=== PATIENT | female | born 1990 | race Caucasian/White ===

== ENCOUNTER 2019-05-18 14:57 | Emergency (ER) | payer MEDICAID ==
[2019-05-18] MEDS ORDERED: Sodium Chloride 0.9% 10 ML Syringe FLUSH PRN (15:13)
[2019-05-18] MEDS ORDERED: Ondansetron 4 MG/2 ML SDV IVPUSH ONE ×2 (15:14→18:01)
[2019-05-18] MEDS ORDERED: LORazepam 2 MG/ML SDV IVPUSH ONE (15:14)
[2019-05-18] MEDS ORDERED: Sodium Chloride 0.9% 1,000 ML IV SCH (15:15)
--- NOTE | 2019-05-18 18:00 | EDM.PDOC ---
ED HPI GENERAL MEDICAL PROBLEM - General Chief Complaint: Gastrointestinal Problem Stated Complaint: PANIC ATTACK Time Seen by Provider: 05/18/19 15:35 Source of Information: Reports: Patient History Limitations: Reports: No Limitations - History of Present Illness INITIAL COMMENTS - FREE TEXT/NARRATIVE: Patient presented to the ED because of fever/chills,N/V/D. Denies having any abdominal pain, or urinary s/s. - Related Data Allergies Allergy/AdvReac Type Severity Reaction Status Date / Time season Allergy Other Uncoded 05/18/19 15:24 Home Meds: Home Meds Cetirizine [ZyrTEC] 10 mg PO DAILY 05/18/19 [History] FLUoxetine [PROzac] 10 mg PO DAILY 05/18/19 [History] ED ROS GENERAL - Review of Systems Review Of Systems: See Below Constitutional: Reports: No Symptoms HEENT: Reports: No Symptoms Respiratory: Reports: No Symptoms Cardiovascular: Reports: No Symptoms Endocrine: Reports: No Symptoms GI/Abdominal: Reports: Diarrhea, Nausea, Vomiting Musculoskeletal: Reports: No Symptoms Skin: Reports: No Symptoms Neurological: Reports: No Symptoms Psychiatric: Reports: Agitation, Anxiety ED EXAM, GI/ABD - Physical Exam Exam: See Below Exam Limited By: No Limitations General Appearance: Alert, No Apparent Distress Nose: Normal Inspection, Normal Mucosa, No Blood Throat/Mouth: Normal Inspection, Normal Lips, Normal Teeth, Normal Gums Head: Atraumatic, Normocephalic Neck: Normal Inspection, Supple Respiratory/Chest: No Respiratory Distress, Lungs Clear, Normal Breath Sounds, No Accessory Muscle Use, Chest Non-Tender Cardiovascular: Normal Peripheral Pulses, Regular Rate, Rhythm, No Edema, No Gallop, No JVD, No Murmur, No Rub GI/Abdominal Exam: Soft, Non-Tender, No Mass, Abnormal Bowel Sounds Back Exam: Normal Inspection, Full Range of Motion. No: CVA Tenderness (R) Extremities: Normal Inspection, Normal Range of Motion, Non-Tender Neurological: Alert, Oriented, CN II-XII Intact, Normal Cognition Psychiatric: Anxious Skin Exam: Warm, Dry, Intact Course - Vital Signs Text/Narrative:: labs/cxr/ was discussed with patient and verbalized full understanding ns 1 l bolus zofran 4 mg iv x 2 doses - Orders/Labs/Meds Orders: Active Orders 24 hr Category Date Time Status Chest 1V Frontal [CR] Stat Exams 05/18/19 16:15 Taken Sodium Chloride 0.9% [Normal Saline] 1,000 ml Med 05/18/19 15:15 Active IV ASDIRECTED Sodium Chloride 0.9% [Saline Flush] Med 05/18/19 15:13 Active 10 ml FLUSH ASDIRECTED PRN Saline Lock Insert [OM.PC] Routine Oth 05/18/19 15:13 Ordered Medication Orders Sodium Chloride (Normal Saline) 1,000 mls @ 999 mls/hr IV ASDIRECTED NATALIA Sodium Chloride (Saline Flush) 10 ml FLUSH ASDIRECTED PRN PRN Reason: Keep Vein Open Labs: Laboratory Tests 05/18/19 05/18/19 05/18/19 Range/Units 15:35 15:35 17:30 WBC 18.9 H (4.5-12.0) X10-3/uL RBC 5.33 H (3.23-5.20) x10(6)uL Hgb 16.6 H (11.5-15.5) g/dL Hct 48.8 (30.0-51.3) % MCV 91.6 (80-96) fL MCH 31.1 (27.7-33.6) pg MCHC 33.9 (32.2-35.4) g/dL RDW 13.0 (11.5-15.5) % Plt Count 270 (125-369) X10(3)uL MPV 9.7 (7.4-10.4) fL Add Manual Diff Yes Neutrophils % (Manual) 93 H (46-82) % Lymphocytes % (Manual) 2 L (13-37) % Monocytes % (Manual) 5 (4-12) % Sodium 143 (135-145) mmol/L Potassium 3.8 (3.5-5.3) mmol/L Chloride 105 (100-110) mmol/L Carbon Dioxide 22 (21-32) mmol/L BUN 15 (7-18) mg/dL Creatinine 1.0 (0.55-1.02) mg/dL Est Cr Clr Drug Dosing TNP Estimated GFR (MDRD) > 60 (>60) BUN/Creatinine Ratio 15.0 (9-20) Glucose 136 H (80-116) mg/dL Calcium 9.9 (8.6-10.2) mg/dL Urine Color Yellow (YELLOW) Urine Appearance Slightly cloudy (CLEAR) Urine pH 5.0 (5.0-6.5) Ur Specific [place] 1.020 (1.010-1.025) Urine Protein Negative (NEGATIVE) mg/dL Urine Glucose (UA) Normal (NORMAL) mg/dL Urine Ketones Negative (NEGATIVE) mg/dL Urine Occult Blood Negative (NEGATIVE) Urine Nitrite Negative (NEGATIVE) Urine Bilirubin Negative (NEGATIVE) Urine Urobilinogen Normal (NEGATIVE) mg/dL Ur Leukocyte Esterase Negative (NEGATIVE) Urine RBC 0-5 (0-5) Urine WBC 0-5 (0-5) Ur Squamous Epith Cells Many H (NS,R,O) Urine Bacteria Moderate H (NS) Urine Mucus Moderate H (NS) Meds: Medications Generic Name Dose Route Start Last Admin Trade Name Freq PRN Reason Stop Dose Admin Sodium Chloride 1,000 mls @ 999 mls/hr 05/18/19 15:15 Normal Saline IV ASDIRECTED NATALIA Sodium Chloride 10 ml 05/18/19 15:13 Saline Flush FLUSH ASDIRECTED PRN Keep Vein Open Discontinued Medications Generic Name Dose Route Start Last Admin Trade Name Freq PRN Reason Stop Dose Admin Lorazepam 1 mg 05/18/19 15:14 Ativan IVPUSH 05/18/19 15:15 ONETIME ONE Ondansetron HCl 4 mg 05/18/19 15:14 Zofran IVPUSH 05/18/19 15:15 ONETIME ONE Ondansetron HCl 4 mg 05/18/19 18:01 Zofran IVPUSH 05/18/19 18:02 ONETIME ONE Departure - Departure Time of Disposition: 17:55 Disposition: Home, Self-Care 01 Condition: Good Clinical Impression: Viral syndrome, Panic attack as reaction to stress - Discharge Information Instructions: Panic Attack, [id number], Viral Illness, Adult Referrals: PCP,None [Primary Care Provider] - Forms: ED Department Discharge Additional Instructions: please read discharge instructions on vial illness and panic attack increase oral fluids frequent hand washing follow up with your anxiety if it's getting worse you can take imodium(over the counter) 2 tablets every 6 hours as needed for you diarrhea Sepsis Event Note - Focused Exam Date Exam was Performed: 05/18/19 Time Exam was Performed: 18:04 - My Orders Last 24 Hours: My Active Orders 05/18/19 15:13 Sodium Chloride 0.9% [Saline Flush] 10 ml FLUSH ASDIRECTED PRN Saline Lock Insert [OM.PC] Routine 05/18/19 15:15 Sodium Chloride 0.9% [Normal Saline] 1,000 ml IV ASDIRECTED 05/18/19 16:15 Chest 1V Frontal [CR] Stat - Assessment/Plan Last 24 Hours: My Active Orders 05/18/19 15:13 Sodium Chloride 0.9% [Saline Flush] 10 ml FLUSH ASDIRECTED PRN Saline Lock Insert [OM.PC] Routine 05/18/19 15:15 Sodium Chloride 0.9% [Normal Saline] 1,000 ml IV ASDIRECTED 05/18/19 16:15 Chest 1V Frontal [CR] Stat
--- NOTE | 2019-05-19 10:28 | CR ---
INDICATION: Cough and fever. COUGH, 1 VIEW: An AP upright portable view of the chest was obtained 05/18/19 - no comparisons. The heart, mediastinum and bony thorax are unremarkable, except to note a minimal dextroconcave scoliosis at the upper thoracic spine. No consolidating pneumonia or effusion was identified. However, there is bronchial wall cuffing at the lung bases, which may represent active peribronchial disease and should be correlated clinically. MTDD
== END 2019-05-18 18:50 | disposition home or self-care (01) ==
LOC: FB.ED 15:02
DX: F43.0 Acute stress reaction (principal); B34.9 Viral infection, unspecified; Z79.899 Other long term (current) drug therapy; Z91.048 Other nonmedicinal substance allergy status
CPT/HCPCS: 36415; 71045; 80048; 81001; 85025; 87804; 96361; 96374; 96375; 96376; 99284; J2060; J2405; J7030

== ENCOUNTER 2020-06-02 07:32 | Emergency (ER) | payer MEDICAID ==
[2020-06-02] MEDS ORDERED: Ondansetron 4 MG/2 ML SDV IVPUSH ONE (08:07)
[2020-06-02] MEDS ORDERED: Ketorolac 30 MG/ML SDV IVPUSH ONE (08:07)
[2020-06-02] MEDS ORDERED: Alum Hydroxide/Mag Hydroxide 30 ML, Lidocaine 2% 15 ML PO ONE ×2 (08:07)
[2020-06-02] MEDS ORDERED: Sodium Chloride 0.9% 1,000 ML IV ONE (08:07)
--- NOTE | 2020-06-02 08:16 | EDM.PDOC ---
ED HPI GENERAL MEDICAL PROBLEM - General Chief Complaint: General Stated Complaint: NOT FEELING WELL Time Seen by Provider: 06/02/20 07:50 Source of Information: Reports: Patient History Limitations: Reports: No Limitations - History of Present Illness INITIAL COMMENTS - FREE TEXT/NARRATIVE: c/o panic attack pt states she had nausea yesterday during the day, ate lunch, no supper inc'd N and anxiety in the evening, says she did not sleep all night, waited for her 7 yo son to go to school and then came to ED has h/o panic attacks x 1y says she is dehydrated and wants IVFs and nausea meds, did not want to answer questions, wanted her sxs tx'ed, did understand that a hx was needed to give her the correct meds had a similar occurrence 2w ago, tx with IVF/Zofran/Ativan, no f/u with PCP last PCP visit 2m ago, sees Gail from [place], lives in [place] denies street drugs, no cigs, no THC, alc 2x/wk stressors are: no work, single parent, handicapped child has had stomac ache in [id number] area, 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 no cough/sob, no f/c/d thirsty - Related Data Allergies Allergy/AdvReac Type Severity Reaction Status Date / Time season Allergy Other Uncoded 05/18/19 15:24 Home Meds: Home Meds Cetirizine [ZyrTEC] 10 mg PO DAILY 05/18/19 [History] FLUoxetine [PROzac] 20 mg PO DAILY 05/18/19 [History] Albuterol Sulfate [Proair Hfa] 1 puff INH ASDIRECTED 06/02/20 [History] Past Medical History Respiratory History: Reports: Asthma Neurological History: Reports: Seizure Psychiatric History: Reports: Anxiety, Depression Social & Family History - Tobacco Use Tobacco Use Status *Q: Never Tobacco User Second Hand Smoke Exposure: No - Caffeine Use Caffeine Use: Reports: None - Alcohol Use Days Per Week of Alcohol Use: 2 Number of Drinks Per Day: 5 Total Drinks Per Week: 10 - Recreational Drug Use Recreational Drug Use: No ED ROS GENERAL - Review of Systems Review Of Systems: See Below Constitutional: Reports: No Symptoms. Denies: Fever, Chills HEENT: Reports: No Symptoms Respiratory: Reports: No Symptoms. Denies: Shortness of Breath, Cough Cardiovascular: Reports: No Symptoms. Denies: Chest Pain Endocrine: Reports: No Symptoms GI/Abdominal: Reports: Abdominal Pain, Nausea, Vomiting, Other (last BM unknown, says she has not been eating and drinking, however denies wt loss) : Reports: No Symptoms Musculoskeletal: Reports: No Symptoms Skin: Reports: No Symptoms Neurological: Reports: No Symptoms Psychiatric: Reports: Anxiety. Denies: Homicidal Ideation, Suicidal Ideation Hematologic/Lymphatic: Reports: No Symptoms Immunologic: Reports: No Symptoms ED EXAM, GENERAL - Physical Exam Exam: See Below Exam Limited By: No Limitations General Appearance: Alert, WD/WN, Other (states she is anxious, no tremors, nl speech, distracted by somatic sxs, did focus when asked to do so) Eye Exam: Bilateral Eye: EOMI, PERRL Ears: Hearing Grossly Normal Nose: Normal Inspection, Normal Mucosa, No Blood Neck: Normal Inspection, Supple, Non-Tender, Full Range of Motion Respiratory/Chest: No Respiratory Distress, Lungs Clear, Normal Breath Sounds, No Accessory Muscle Use, Chest Non-Tender Cardiovascular: Regular Rate, Rhythm, No Edema, No Gallop, No Murmur, No Rub GI/Abdominal: Normal Bowel Sounds, Soft, No Organomegaly, No Distention, Other (slight tender in epigastrium only, nl BS x 4) Back Exam: Normal Inspection, Full Range of Motion. No: CVA Tenderness (L) Extremities: Normal Inspection, Normal Range of Motion, Non-Tender, No Pedal Edema Neurological: Alert, Oriented, CN II-XII Intact, Normal Cognition, No Motor/Sensory Deficits Psychiatric: Other (some anxiety, states she is under a lot of stress, no SI/HI) Skin Exam: Warm, Dry, Intact, Normal Color, No Rash Lymphatic: No Adenopathy Course - Vital Signs Last Recorded V/S: Last Vital Signs Temp 36.8 C 06/02/20 07:37 Pulse 82 06/02/20 07:37 Resp 18 06/02/20 07:37 BP 102/69 06/02/20 07:37 Pulse Ox 97 06/02/20 07:37 - Orders/Labs/Meds Labs: Laboratory Tests 06/02/20 06/02/20 06/02/20 Range/Units 08:00 08:00 08:25 WBC 13.1 H (3.0-10.3) x10-3/uL RBC 4.45 (3.60-5.20) x10(6)uL Hgb 13.7 (11.4-15.5) g/dL Hct 41.3 (34.2-48.2) % MCV 92.8 (76.7-100.5) fL MCH 30.7 (23.9-33.9) pg MCHC 33.1 (31.9-34.8) g/dL RDW 12.6 (12.3-16.5) % Plt Count 236 (151-488) x10(3)uL MPV 9.4 (7.1-12.4) fL Add Manual Diff Yes Neutrophils % (Manual) 93 H (46-82) % Lymphocytes % (Manual) 5 L (13-37) % Monocytes % (Manual) 2 L (4-12) % Sodium (135-145) mmol/L Potassium (3.5-5.3) mmol/L Chloride (100-110) mmol/L Carbon Dioxide (21-32) mmol/L BUN (7-18) mg/dL Creatinine (0.55-1.02) mg/dL Est Cr Clr Drug Dosing mL/min Estimated GFR (MDRD) (>60) BUN/Creatinine Ratio (9-20) Glucose (80-116) mg/dL Calcium (8.6-10.2) mg/dL Total Bilirubin (0.1-1.3) mg/dL AST (5-25) IU/L ALT (12-36) U/L Alkaline Phosphatase (56-112) IU/L Creatine Kinase (60-160) IU/L C-Reactive Protein (0.5-0.9) mg/dL Total Protein (6.0-8.0) g/dL Albumin (3.5-5.2) g/dL Globulin g/dL Albumin/Globulin Ratio Lipase (73-393) U/L Urine Color Yellow (YELLOW) Urine Appearance Slightly cloudy (CLEAR) Urine pH 7.0 H (5.0-6.5) Ur Specific [place] 1.010 (1.010-1.025) Urine Protein Negative (NEGATIVE) mg/dL Urine Glucose (UA) Normal (NORMAL) mg/dL Urine Ketones Negative (NEGATIVE) mg/dL Urine Occult Blood Negative (NEGATIVE) Urine Nitrite Negative (NEGATIVE) Urine Bilirubin Negative (NEGATIVE) Urine Urobilinogen Normal (NEGATIVE) mg/dL Ur Leukocyte Esterase Negative (NEGATIVE) Urine RBC Not seen (0-5) Urine WBC 0-5 (0-5) Ur Squamous Epith Cells Moderate H (NS,R,O) Urine Bacteria Few H (NS) Urine Mucus Few H (NS) Urine Opiates Screen Negative (NEGATIVE) Ur Oxycodone Screen Negative (NEGATIVE) Ur Propoxyphene Screen Negative (NEGATIVE) Ur Barbituates Screen Negative (NEGATIVE) Ur Tricyclics Screen Negative (NEGATIVE) Ur Phencyclidine Scrn Negative (NEGATIVE) Ur Amphetamine Screen Negative (NEGATIVE) Urine MDMA Screen Negative (NEGATIVE) U Benzodiazepines Scrn Negative (NEGATIVE) U Cocaine Metab Screen Negative (NEGATIVE) U Marijuana (THC) Screen Negative (NEGATIVE) 06/02/20 06/02/20 06/02/20 Range/Units 08:25 08:25 08:25 WBC (3.0-10.3) x10-3/uL RBC (3.60-5.20) x10(6)uL Hgb (11.4-15.5) g/dL Hct (34.2-48.2) % MCV (76.7-100.5) fL MCH (23.9-33.9) pg MCHC (31.9-34.8) g/dL RDW (12.3-16.5) % Plt Count (151-488) x10(3)uL MPV (7.1-12.4) fL Add Manual Diff Neutrophils % (Manual) (46-82) % Lymphocytes % (Manual) (13-37) % Monocytes % (Manual) (4-12) % Sodium 136 (135-145) mmol/L Potassium 4.0 (3.5-5.3) mmol/L Chloride 99 L D (100-110) mmol/L Carbon Dioxide 25 (21-32) mmol/L BUN 13 (7-18) mg/dL Creatinine 1.0 (0.55-1.02) mg/dL Est Cr Clr Drug Dosing 72.97 mL/min Estimated GFR (MDRD) > 60 (>60) BUN/Creatinine Ratio 13.0 (9-20) Glucose 108 (80-116) mg/dL Calcium 9.1 (8.6-10.2) mg/dL Total Bilirubin 0.5 (0.1-1.3) mg/dL AST 17 (5-25) IU/L ALT 25 (12-36) U/L Alkaline Phosphatase 92 (56-112) IU/L Creatine Kinase 97 (60-160) IU/L C-Reactive Protein < 0.2 L (0.5-0.9) mg/dL Total Protein 7.7 (6.0-8.0) g/dL Albumin 4.1 (3.5-5.2) g/dL Globulin 3.6 g/dL Albumin/Globulin Ratio 1.1 Lipase 49 L (73-393) U/L Urine Color (YELLOW) Urine Appearance (CLEAR) Urine pH (5.0-6.5) Ur Specific [place] (1.010-1.025) Urine Protein (NEGATIVE) mg/dL Urine Glucose (UA) (NORMAL) mg/dL Urine Ketones (NEGATIVE) mg/dL Urine Occult Blood (NEGATIVE) Urine Nitrite (NEGATIVE) Urine Bilirubin (NEGATIVE) Urine Urobilinogen (NEGATIVE) mg/dL Ur Leukocyte Esterase (NEGATIVE) Urine RBC (0-5) Urine WBC (0-5) Ur Squamous Epith Cells (NS,R,O) Urine Bacteria (NS) Urine Mucus (NS) Urine Opiates Screen (NEGATIVE) Ur Oxycodone Screen (NEGATIVE) Ur Propoxyphene Screen (NEGATIVE) Ur Barbituates Screen (NEGATIVE) Ur Tricyclics Screen (NEGATIVE) Ur Phencyclidine Scrn (NEGATIVE) Ur Amphetamine Screen (NEGATIVE) Urine MDMA Screen (NEGATIVE) U Benzodiazepines Scrn (NEGATIVE) U Cocaine Metab Screen (NEGATIVE) U Marijuana (THC) Screen (NEGATIVE) Meds: Medications Discontinued Medications Generic Name Dose Route Start Last Admin Trade Name Freq PRN Reason Stop Dose Admin Al Hydroxide/Mg Hydroxide 30 0 ml 06/02/20 08:07 06/02/20 08:22 ml/ Lidocaine HCl 15 ml PO 06/02/20 08:08 45 ml ONETIME ONE Administration Sodium Chloride 1,000 mls @ 999 mls/hr 06/02/20 08:07 06/02/20 08:23 Normal Saline IV 06/02/20 09:07 999 mls/hr .BOLUS ONE Administration Ketorolac Tromethamine 30 mg 06/02/20 08:07 06/02/20 08:23 Toradol IVPUSH 06/02/20 08:08 30 mg ONETIME ONE Administration Ondansetron HCl 4 mg 06/02/20 08:07 06/02/20 08:23 Zofran IVPUSH 06/02/20 08:08 4 mg ONETIME ONE Administration - Re-Assessments/Exams Free Text/Narrative Re-Assessment/Exam: 06/02/20 08:20 having difficulty handling stressors, some anxiety although mood disorder appears secondary to her difficulty coping states she is dehydrated when skin turgor appears fairly normal 06/02/20 09:27 pt reluctant to go to counselor, [facility] has referred to neuropsych, pt says that her PCP is "working on" a referral (yet pt has not seen PCP in 2m) pt told RN "people will think I am a crazy person" 9:36a pt states she was at [facility] x 3d one month ago for a sleep EEG, she had an abnormal EEG in the past apparently and there was a question of encephalopathy then, EEG last night apparently neg, pt says her anticonvulsants were stopped (pt reports prior h/o szs) pt given option of seeing Dr Temple pt states she is feeling much better, nausea gone Departure - Departure Time of Disposition: 09:45 Disposition: Home, Self-Care 01 Condition: Good Clinical Impression: Stress disorder, acute - Discharge Information *PRESCRIPTION DRUG MONITORING PROGRAM REVIEWED*: Not Applicable *COPY OF PRESCRIPTION DRUG MONITORING REPORT IN PATIENT KWASI: Not Applicable Instructions: Managing Stress, Adult Forms: ED Department Discharge Additional Instructions: Take medications as prescribed. A counselor can be helpful in developing strategies for stress reduction and improved sleep pattern. Dr Temple at the [facility] can be a useful resource. An appointment with her is recommended. See your PCP in the next 4-5 days for further instructions. Sepsis Event Note (ED) - Evaluation Sepsis Screening Result: No Definite Risk - Focused Exam Vital Signs: Vital Signs Temp Pulse Resp BP Pulse Ox 06/02/20 07:37 36.8 C 82 18 102/69 97
== END 2020-06-02 09:50 | disposition home or self-care (01) ==
LOC: FB.ED 07:32
DX: F43.0 Acute stress reaction (principal); J45.909 Unspecified asthma, uncomplicated; Z91.048 Other nonmedicinal substance allergy status
CPT/HCPCS: 36415; 80053; 80305; 81001; 82550; 83690; 85025; 86140; 96374; 96375; 99283; A9270; J1885; J2405; J7030; 99284

== ENCOUNTER 2021-05-22 19:28 | Emergency (ER) | payer MEDICAID | END 2021-05-22 21:38 | disposition home or self-care (01) | LOC: FB.ED 19:28 | DX: S90.852A Superficial foreign body, left foot, initial encounter (principal); J45.909 Unspecified asthma, uncomplicated; Z91.048 Other nonmedicinal substance allergy status; Z79.899 Other long term (current) drug therapy; W45.8XXA Other foreign body or object entering through skin, initial encounter | CPT/HCPCS: 36415; 73630-LT; 85025; 86140; 99283-25 ==

== ENCOUNTER 2022-11-04 05:16 | Emergency (ER) | payer MEDICAID | END 2022-11-04 05:47 | disposition home or self-care (01) | LOC: FB.ED 05:16 | DX: S43.402A Unspecified sprain of left shoulder joint, initial encounter (principal); J45.909 Unspecified asthma, uncomplicated; Z91.048 Other nonmedicinal substance allergy status; Z79.899 Other long term (current) drug therapy | CPT/HCPCS: 99283 ==

== ENCOUNTER 2022-11-06 15:43 | Emergency (ER) | payer MEDICAID ==
[2022-11-06] MEDS ORDERED: Diphtheria,Pertussis(Acell),Tetanus Vaccine 0.5 ML Syringe IM ONE (16:16)
== END 2022-11-06 16:31 | disposition home or self-care (01) ==
LOC: FB.ED 15:43
DX: S01.81XA Laceration without foreign body of other part of head, initial encounter (principal); S93.602A Unspecified sprain of left foot, initial encounter; S46.912A Strain of unspecified muscle, fascia and tendon at shoulder and upper arm level, left arm, initial encounter; J45.909 Unspecified asthma, uncomplicated; Z23 Encounter for immunization; Z91.048 Other nonmedicinal substance allergy status; Z79.899 Other long term (current) drug therapy; W17.89XA Other fall from one level to another, initial encounter; Y93.39 Activity, other involving climbing, rappelling and jumping off
CPT/HCPCS: 90471; 90715; 99282-25; 99283

== ENCOUNTER 2023-03-01 01:26 | Emergency (ER) | payer MEDICAID | END 2023-03-01 02:50 | disposition home or self-care (01) | LOC: FB.ED 01:26 | DX: F33.1 Major depressive disorder, recurrent, moderate (principal); Z91.048 Other nonmedicinal substance allergy status; Z79.899 Other long term (current) drug therapy | CPT/HCPCS: 99283 ==

== ENCOUNTER 2023-11-15 13:35 | Emergency (ER) | payer MEDICAID ==
[2023-11-15] MEDS ORDERED: Sodium Chloride 0.9% 10 ML Syringe FLUSH PRN (13:58)
[2023-11-15] MEDS: Sodium Chloride 0.9% 1,000 ML IV ONE ×2 (14:03→15:21)
[2023-11-15] MEDS: Ondansetron 4 MG/2 ML SDV IVPUSH ONE (14:06)
[2023-11-15 14:16] LABS: BASOPHILS PERCENT AUTO 0.8 % (0.2-1.5); EOSINOPHILS PERCENT AUTO 0.8 % (0.6-8.1); HEMATOCRIT 42.8 % (34.2-48.2); HEMOGLOBIN 14.5 g/dL (11.4-15.5); LYMPHOCYTES ABSOLUTE AUTO 1.3 x10-3/uL (1.0-4.4); LYMPHOCYTES PERCENT AUTO 22.8 % (18.4-52.1); MEAN CORPUSCULAR HGB CONC 33.9 g/dL (31.9-34.8); MEAN CORPUSCULAR VOLUME 94.4 fL (76.7-100.5); MEAN PLATELET VOLUME 8.5 fL (7.1-12.4); MONOCYTES ABSOLUTE AUTO 0.4 x10-3/uL (0.3-1.0); MONOCYTES PERCENT AUTO 7.3 % (4.4-15.7); NEUTROPHILS PERCENT AUTO 68.3 % (30.8-76.2); PLATELET COUNT,PLT 266 x10(3)uL (151-488); RED BLOOD CELL COUNT 4.53 x10(6)uL (3.60-5.20); RED CELL DISTRIBUTION WIDTH 14.4 % (12.3-16.5); WHITE BLOOD CELL COUNT,WBC 5.9 x10-3/uL (3.0-10.3)
[2023-11-15 14:22] LABS: BLOOD UREA NITROGEN,BUN 11 mg/dL (7-18); CARBON DIOXIDE,CO2 20 mmol/L (21-32); CHLORIDE,CL 101 mmol/L (100-110); CREATININE 1.1 mg/dL (0.55-1.02); ESTIMATED GFR 69 mL/min (>60); GLUCOSE RANDOM 125 mg/dL (80-116); POTASSIUM,K 3.4 mmol/L (3.5-5.3); SODIUM,NA 140 mmol/L (135-145)
[2023-11-15 14:27] LABS: A/G RATIO 1.2; ALANINE AMINOTRANSFERASE,ALT 40 U/L (12-36); ALBUMIN 4.2 g/dL (3.5-5.2); ALKALINE PHOSPHATASE 104 IU/L (56-112); ASPARTATE AMNIOTRANSFERASE,AST 41 IU/L (5-25); BILIRUBIN TOTAL 1.1 mg/dL (0.1-1.3); MAGNESIUM 1.6 mg/dL (1.8-2.5); PROTEIN TOTAL,TP 7.8 g/dL (6.0-8.0)
[2023-11-15] MEDS: LORazepam 2 MG/ML SDV IVPUSH ONE (15:13)
== END 2023-11-15 16:32 | disposition home or self-care (01) ==
LOC: FB.ED 13:35
DX: R11.2 Nausea with vomiting, unspecified (principal); E86.0 Dehydration; F41.9 Anxiety disorder, unspecified; J45.909 Unspecified asthma, uncomplicated; Z79.899 Other long term (current) drug therapy
CPT/HCPCS: 36415; 80053; 81025; 83735; 85025; 86140; 96361; 96374; 96375; 99284; J2060; J2405; J7030

== ENCOUNTER 2024-08-14 03:27 | Emergency (ER) | payer MEDICAID | END 2024-08-14 04:00 | disposition home or self-care (01) | LOC: FB.ED 03:27 | DX: J45.909 Unspecified asthma, uncomplicated (principal); Z91.09 Other allergy status, other than to drugs and biological substances; Z79.51 Long term (current) use of inhaled steroids; Z79.899 Other long term (current) drug therapy | CPT/HCPCS: 99283 ==